=== PATIENT | female | born 1990 | race Hispanic/Latino ===

== ENCOUNTER 2018-05-14 20:39 | Inpatient (IN) | payer MEDICAID, SELFPAY ==
[~2018-05-14 20:39] MED LIST: ISOVUE-370 76%-LOCM 1 ML ONE; Iopamidol 370 76% 50 ML VIAL FS ONE
[2018-05-14 21:14] LABS: #Lymphocytes 0.9 thou/uL (1.20-3.40); #Monocytes 1.1 thou/uL (0.11-0.59); #Neutrophils 11.5 thou/uL (1.40-6.50); %Basophils 0.2 % (0.0-1.0); %Eosinophils 0.1 % (0.0-10.0); %Lymphocytes 6.6 % (21.0-51.0); %Monocytes 8.3 % (0.0-10.0); %Neutrophils 84.8 % (42.0-75.0); Hemoglobin 15.3 g/dL (12.0-16.0); Mean Corpuscular HGB CONC 35.2 g/dL (32.0-36.0); Mean Corpuscular Volume 90.7 fL (78.0-98.0); Mean Platelet Volume 6.7 fL (7.4-10.4); Platelet Count 248 thou/uL (130-400); RBC Distribution Width 11.1 % (11.5-14.5); Red Blood Cell (RBC) Count 4.79 mill/uL (4.20-5.40); White Blood Cell (WBC) Count 13.5 thou/uL (4.8-10.8)
[2018-05-14 21:21] LABS: Bilirubin Negative (Negative); Blood, Urine Moderate (Negative); Clarity CLOUDY (Clear); Glucose, Urine (Dipstick) Negative (Negative); Leukocyte Moderate (Negative); Nitrite Negative (Negative); Protein, Urine (Dipstick) Trace mg/dL (Neg-Trace); Specific Gravity, Urine 1.019 (1.002-1.036); pH, Urine 6.5 (5.0-9.0)
[2018-05-14 21:22] LABS: Bacteria/HPF None Seen HPF (None Seen); Hyaline Casts/LPF 7-10 HYALINE CAST LPF (0-3 Hyaline)
[2018-05-14 21:26] LABS: Pregnancy Test - Urine (BHCG) Negative (Negative); Pregu Control Background? CLEAR/WHITE (CLR/WHITE); Pregu Control Bar Appear? YES (CONTROL BAR); Specific Gravity 1.019 (1.002-1.036)
--- NOTE | 2018-05-14 21:27 | RAD ---
SINGLE VIEW OF THE CHEST: 05/14/18 COMPARISON: HISTORY: Right lower quadrant abdominal pain and cold FINDINGS: Single view of the chest shows a normal sized cardiomediastinal silhouette. There is no evidence of c onsolidation, mass, or pleural effusion. The bones are unremarkable. IMPRESSION: No evidence of acute cardiopulmonary disease. POS: [facility]
[2018-05-14 21:34] LABS: ALT (SGPT) 52 U/L (8-55); AST (SGOT) 37 U/L (5-34); Albumin 4.8 g/dL (3.5-5.0); Alkaline Phosphatase 92 U/L (40-150); Anion Gap 13 mmol/L (10-20); BUN (Urea Nitrogen) 7 mg/dL (7.0-18.7); Bilirubin, Total 3.4 mg/dL (0.2-1.2); Calc. Creatinine Clearance 0 mL/min (70-130); Calcium 9.5 mg/dL (7.8-10.44); Carbon Dioxide 24 mmol/L (22-29); Chloride 101 mmol/L (98-107); Estimated GFR-MDRD Greater than 90; Globulin 3.6 g/dL (2.4-3.5); Glucose 113 mg/dL (70-105); Lipase 9 U/L (8-78); Potassium 3.5 mmol/L (3.5-5.1); Protein, Total 8.4 g/dL (6.0-8.3); Sodium 134 mmol/L (136-145)
--- NOTE | 2018-05-15 | CT ---
CT OF THE ABDOMEN AND PELVIS WITH CONTRAST 05/14/18 COMPARISON: None. HISTORY: Generalized abdominal pain that started yesterday and is now experiencing pain in the right lower luis drant of the abdomen. TECHNIQUE: Multiple contiguous axial images were obtained in a CT of the abdomen and pelvis with contrast. PO co ntrast was administered. Coronal reformats were performed. FINDINGS: The appendix is enlarged. There are stranding changes surrounding the appendix. These findings are co nsistent with acute appendicitis. No free air or free fluid are seen in the abdomen or pelvis. The liver, gallbladder, kidneys, adrenal glands, spleen, and pancreas are unremarkable. The large and small bowel are unremarkable. No abdominal or pelvic lymphadenopathy are seen. The osseous structures, visualized inferior thorax, and abdominal wall soft tissues are unremarkable. IMPRESSION: Acute appendicitis. Dr. Pandey notified of the findings at 11:53 p.m. on 05/14/18. POS: [facility]
[2018-05-15] MEDS ORDERED: Piperacillin/Tazobactam 3.375 GM VIAL ONE (00:20)
[2018-05-15] MEDS ORDERED: Morphine 4 MG/ML VIAL SLOW IVP PRN ×2 (01:27→14:30)
[2018-05-15] MEDS ORDERED: Ondansetron HCl/PF 4 MG/2 ML Vial IVP PRN ×3 (01:27→14:30)
[2018-05-15] MEDS ORDERED: Ondansetron ODT 4 MG TAB SL PRN (01:27)
[2018-05-15] MEDS: Sodium Chloride 0.9% 1,000 ML IV SCH ×3 (01:52→17:52)
[2018-05-15] MEDS ORDERED: Acetaminophen 1,000 MG in Premix Bag 1 BAG IVPB PRN (04:34)
[2018-05-15] MEDS: Piperacillin/Tazobactam 3.375 GM in Sodium Chloride 0.9% 100 ML IVPB SCH ×3 (05:17→17:51)
[2018-05-15] MEDS ORDERED: Morphine 4 MG/ML Carpuject IVP PRN (07:57)
[2018-05-15] MEDS ORDERED: Morphine 4 MG/ML VIAL IV PRN (08:01)
[2018-05-15] MEDS ORDERED: Ondansetron HCl/PF 4 MG/2 ML Vial ONE (09:47)
[2018-05-15] MEDS ORDERED: PHENYLEPHRINE-NS 100 MCG/ML 10 ML SYRINGE ONE (09:47)
[2018-05-15] MEDS ORDERED: PROPOFOL 200 MG/20 ML VIAL ONE (09:47)
[2018-05-15] MEDS ORDERED: Glycopyrrolate 0.2 MG/ML 5 ML SYRINGE ONE (09:47)
[2018-05-15] MEDS ORDERED: Dexamethasone 20 MG/5 ML VIAL ONE (09:47)
[2018-05-15] MEDS ORDERED: Lidocaine 1% PF 5 ML VIAL ONE (09:47)
--- NOTE | 2018-05-15 10:01 | HP ---
DATE OF ADMISSION: 05/15/2018 CHIEF COMPLAINT: Right lower quadrant pain. HISTORY OF PRESENT ILLNESS: This is a 28-year-old female who presents with pain in her lower abdomen for the last few days. Pain is described as sharp, 8/10, does not radiate, associated with nausea, but no vomiting. She is anorexic. No change in stools. No history of chronic abdominal pain, no hi story of inflammatory bowel disease. Seen in the emergency department overnight and her CT scan reve als acute appendicitis. PAST MEDICAL HISTORY: She denies. PAST SURGICAL HISTORY: She denies. MEDICINES TAKEN DAILY: None. ALLERGIES: No known drug allergies. SOCIAL HISTORY: No smoking, alcohol or other drugs. She is . REVIEW OF SYSTEMS: Ten system review of systems otherwise negative unless described above. PHYSICAL EXAMINATION: VITAL SIGNS: Blood pressure is 82/54, pulse 94, respirations 14, temperature 98.2. HEENT: Sclerae are anicteric. Oropharynx clear. NECK: No lymphadenopathy. CHEST: Clear. HEART: Regular rate and rhythm. ABDOMEN: Soft, tender right lower quadrant, localized guarding, no rebound, no abdominal hernias. EXTREMITIES: No ischemia or edema to extremities. LABORATORY DATA: White cell count is 13, hemoglobin 15, sodium 134, potassium 3.5, creatinine 0.73, bilirubin elevated at 3.4. ASSESSMENT: Acute appendicitis. PLAN: Laparoscopic appendectomy. Risks, benefits discussed. She gives consent. We will do this to day. I suspect her hyperbilirubinemia is reactive. We will follow.
[2018-05-15] MEDS ORDERED: Promethazine HCl 25 MG/ML VIAL ONE (10:42)
[2018-05-15] MEDS ORDERED: HYDROmorphone 2 MG/ML VIAL ONE (10:42)
[2018-05-15] MEDS ORDERED: Fentanyl 100 MCG/2 ML VIAL ONE (10:42)
[2018-05-15] MEDS ORDERED: Bupivacaine/Epinephrine 0.25% 30 ML VIAL ONE (11:01)
[2018-05-15] MEDS ORDERED: Midazolam HCl 2 mg/2 ml Vial ONE (11:18)
[2018-05-15] MEDS ORDERED: Promethazine HCl 25 MG/ML VIAL SLOW IVP PRN (12:42)
[2018-05-15] MEDS ORDERED: HYDROmorphone 2 MG/ML VIAL SLOW IVP PRN (12:42)
[2018-05-15] MEDS ORDERED: Promethazine HCl 25 MG/ML VIAL IM PRN ×2 (12:42→14:30)
--- NOTE | 2018-05-15 13:10 | OP ---
DATE OF PROCEDURE: 05/15/2018 PREOPERATIVE DIAGNOSIS: Acute appendicitis. POSTOPERATIVE DIAGNOSIS: Acute appendicitis. PROCEDURE: Laparoscopic appendectomy. SURGEON: Dr. Luis Daniel ANESTHESIA: General. ESTIMATED BLOOD LOSS: Minimal. COMPLICATIONS: None. SPECIMEN: Appendix. FINDINGS: Severe localized inflammatory change. TECHNIQUE: The patient was taken to the operating room and placed supine on the table. After genera l anesthetics obtained a Santiago was placed. The abdomen shaved, prepped, and draped in a sterile fas ion. Curved incision below the umbilicus, cautery used to dissect down to and score the fascia. Abd ominal cavity entered bluntly using a Brenda clamp. Holding stitch of PDS placed on each side of the fascia. Penn trocar was placed. High-flow pneumoperitoneum was obtained. A suprapubic 5 mm port and a left lower quadrant 5-mm port were placed under direct visualization. There was severe inflamm atory change in the right lower quadrant. The right colon had to be mobilized off the retroperitoneu m to expose the retrocecal appendix. The appendix was inflamed and into a retroperitoneal cavity of sorts. It finally was able to be mobilized and a stapler was fired across its base and a reload fire d across its mesoappendix. It was placed in an Endo catch bag and brought out through the Penn. T here was no bleeding. The right lower quadrant irrigated as is the pelvis. A 19 round drain brought out through the right lower quadrant incision and left in the right lower quadrant connected to a bu lb. All port sites were infiltrated using local anesthetic. All ports were removed under direct vis ualization. Pneumoperitoneum was let down. PDS was used to close the fascial defect below the umbil icus. All incisions were irrigated and closed using 4-0 Monocryl and Dermabond. The patient went to recovery in stable condition. All instrument counts, sponge counts and needle counts were correct.
[2018-05-15] MEDS ORDERED: hydrALAZINE 20 MG/ML VIAL SLOW IVP PRN (14:30)
[2018-05-15] MEDS ORDERED: Dextrose 50% Abboject 50 ML SYRINGE SLOW IVP PRN (14:30)
[2018-05-15] MEDS ORDERED: Ketorolac Tromethamine 30 MG/ML VIAL IVP PRN (14:30)
[2018-05-15] MEDS ORDERED: HYDROcodone/Acetaminophen 10/325 mg Tablet PO PRN (14:30)
[2018-05-15] MEDS ORDERED: Dextrose 5% in Water 1,000 ML IV PRN (14:30)
[2018-05-15] MEDS: Famotidine/PF 20 mg/2ml Vial SLOW IVP SCH (20:28)
[2018-05-15] MEDS: HYDROcodone/Acetaminophen 10/325 mg Tablet PO PRN (21:35)
[2018-05-15] MEDS: Famotidine 20 MG TAB PO SCH (21:35)
[2018-05-16] MEDS: Sodium Chloride 0.9% 1,000 ML IV SCH ×3 (00:13→23:55)
[2018-05-16] MEDS: Piperacillin/Tazobactam 3.375 GM in Sodium Chloride 0.9% 100 ML IVPB SCH ×5 (00:13→23:55)
[2018-05-16 05:41] LABS: Anion Gap 10 mmol/L (10-20); BUN (Urea Nitrogen) 10 mg/dL (7.0-18.7); Calc. Creatinine Clearance 133 mL/min (70-130); Calcium 8.3 mg/dL (7.8-10.44); Carbon Dioxide 23 mmol/L (22-29); Chloride 107 mmol/L (98-107); Estimated GFR-MDRD Greater than 90; Glucose 116 mg/dL (70-105); Potassium 4.1 mmol/L (3.5-5.1); Sodium 136 mmol/L (136-145)
[2018-05-16 05:53] LABS: Band 19 % (5-11); Hemoglobin 12.4 g/dL (12.0-16.0); Lymphocytes 4 % (21-51); MDiff Complete? YES; Mean Corpuscular HGB CONC 33.9 g/dL (32.0-36.0); Mean Corpuscular Hemoglobin 31.2 pg (27.0-31.0); Mean Platelet Volume 8.3 fL (7.4-10.4); Monocytes 5 % (0-10); Neutrophil 72 % (42-75); PLT Morphology Comment Appears Adequate; Platelet Count 192 thou/uL (130-400); RBC Distribution Width 11.1 % (11.5-14.5); Red Blood Cell (RBC) Count 3.97 mill/uL (4.20-5.40); White Blood Cell (WBC) Count 14.5 thou/uL (4.8-10.8)
[2018-05-16 07:32] VITALS: BMI 24.5
[2018-05-16] MEDS: Famotidine 20 MG TAB PO SCH ×2 (08:30→20:00)
[2018-05-16] MEDS: Famotidine/PF 20 mg/2ml Vial SLOW IVP SCH ×2 (08:31→20:02)
--- NOTE | 2018-05-16 10:12 | PRG ---
DATE OF SERVICE: 05/16/2018 SUBJECTIVE: Postop day #1, perforated laparoscopic appendectomy. Ms. Danny Agarwal is having mild nausea. She tolerated mostly her diet. She has not been ambulatory yet. She is afebrile. PHYSICAL EXAMINATION: VITAL SIGNS: Stable. ABDOMEN: Soft and tender around the incision sites. RANULFO is serosanguineous. LABORATORY DATA: White cell count today is still 14. Sodium 136, potassium 4.1 and creatinine 0.54. ASSESSMENT: Perforated appendicitis, status post laparoscopic appendectomy. PLAN: Advance diet. Mobilize today. Recheck her liver function test tomorrow. Her bilirubin is 3. 4 on admission, likely reactive, but we will make sure that comes back to normal before she goes. Co katia Paz for now. We will transition to oral antibiotics as an outpatient.
[2018-05-16] MEDS: HYDROcodone/Acetaminophen 10/325 mg Tablet PO PRN (12:42)
[2018-05-17 04:51] LABS: #Lymphocytes 1.4 thou/uL (1.20-3.40); #Monocytes 0.8 thou/uL (0.11-0.59); #Neutrophils 9.4 thou/uL (1.40-6.50); %Basophils 0.1 % (0.0-1.0); %Eosinophils 0.2 % (0.0-10.0); %Lymphocytes 11.8 % (21.0-51.0); Hemoglobin 11.9 g/dL (12.0-16.0); Mean Corpuscular HGB CONC 34.8 g/dL (32.0-36.0); Mean Corpuscular Hemoglobin 32.3 pg (27.0-31.0); Mean Corpuscular Volume 92.8 fL (78.0-98.0); Mean Platelet Volume 7.4 fL (7.4-10.4); Platelet Count 229 thou/uL (130-400); RBC Distribution Width 10.9 % (11.5-14.5); Red Blood Cell (RBC) Count 3.69 mill/uL (4.20-5.40); White Blood Cell (WBC) Count 11.6 thou/uL (4.8-10.8)
[2018-05-17 05:25] LABS: ALT (SGPT) 37 U/L (8-55); AST (SGOT) 20 U/L (5-34); Albumin 3.2 g/dL (3.5-5.0); Alkaline Phosphatase 111 U/L (40-150); Anion Gap 12 mmol/L (10-20); BUN (Urea Nitrogen) 9 mg/dL (7.0-18.7); Bilirubin, Total 0.9 mg/dL (0.2-1.2); Calc. Creatinine Clearance 126 mL/min (70-130); Calcium 8.1 mg/dL (7.8-10.44); Carbon Dioxide 22 mmol/L (22-29); Chloride 108 mmol/L (98-107); Estimated GFR-MDRD Greater than 90; Globulin 3.1 g/dL (2.4-3.5); Glucose 100 mg/dL (70-105); Potassium 3.7 mmol/L (3.5-5.1); Protein, Total 6.3 g/dL (6.0-8.3); Sodium 138 mmol/L (136-145)
[2018-05-17] MEDS: Piperacillin/Tazobactam 3.375 GM in Sodium Chloride 0.9% 100 ML IVPB SCH (05:46)
[2018-05-17] MEDS: Sodium Chloride 0.9% 1,000 ML IV SCH (06:46)
[2018-05-17 08:11] VITALS: BP 111/66; TEMP 97.6
[2018-05-17] MEDS: Famotidine/PF 20 mg/2ml Vial SLOW IVP SCH (09:01)
--- NOTE | 2018-05-17 09:11 | DIS ---
DATE OF ADMISSION: 05/15/2018 DATE OF DISCHARGE: 05/17/2018 ADMIT DIAGNOSIS: Acute appendicitis. DISCHARGE DIAGNOSIS: Acute appendicitis. PROCEDURES: Laparoscopic appendectomy with drain by Dr. Daniel without complication. CONDITION AT DISCHARGE: Improved. STAFF: Dr. Daniel. HOSPITAL COURSE: The patient's postop course was uneventful. On 05/17/2018, the patient is doing we ll. Her drain is removed. She is discharged home. Discharge prescriptions include Cipro, Flagyl and [employer]. She will follow up in my office in 2 weeks.
[2018-05-17] MEDS: HYDROcodone/Acetaminophen 10/325 mg Tablet PO PRN (09:24)
[2018-05-17] MEDS: Famotidine 20 MG TAB PO SCH (09:25)
== END 2018-05-17 10:07 | disposition home or self-care (01) | DRG 343 ==
LOC: ERS 20:39 → OBSVTOIN 05-15 00:14 → SURG A 05-15 00:14
PROVIDERS: ADMIT Surgery; ATTEND Surgery
PROC: 0DTJ4ZZ Resection of Appendix, Percutaneous Endoscopic Approach (ICD-10-PCS; principal; 2018-05-15)
DX: K35.80 Unspecified acute appendicitis (principal)
CPT/HCPCS: 36415; 71045; 74177; 80048; 80053; 81003; 81015; 81025; 83605; 83690; 85025; 87040; 87076; 87149; 88304; 94760; 96361; 96365; 96375; J0131; J1100; J1170; J2001; J2250; J2270; J2405; J2543; J2550; J2704; J3010; J7050